=== PATIENT | male | born 1945 | race Caucasian/White ===

== ENCOUNTER 2018-07-04 12:33 | Emergency (ER) | payer MEDICARE ==
[~2018-07-04] VITALS: Ht 188 cm; Wt 113.0 kg
[2018-07-04] MEDS ORDERED: ONDANSETRON HCL 4MG/2ML INJ IV STA (12:53)
[2018-07-04] MEDS ORDERED: SODIUM CHLORIDE 0.9% 1,000 ML IV ONE (12:53)
[2018-07-04 13:13] LABS: CHLORIDE 108 mEq/L (98-107)
[2018-07-04 13:15] LABS: BASOPHILS % 0.8 % (0.0-2.0); EOSINOPHILS % 3.9 % (0.0-5.0); HEMATOCRIT. 43.6 % (42.0-52.0); HEMOGLOBIN. 14.6 g/dL (14.0-18.0); LYMPHOCYTES % 23.2 % (20.0-50.0); MEAN CORPUSCULAR HEMOGLOBIN 29.2 pg (28.0-32.0); MEAN CORPUSCULAR VOLUME 87.2 fL (80.0-94.0); MEAN PLATELET VOLUME 7.7 fl (7.4-10.4); MONOCYTES % 5.7 % (2.0-8.0); NEUTROPHILS % 66.4 % (40.0-76.0); PLATELET 235 x1000/uL (130-400); RED CELL DISTRIBUTION WIDTH 14.5 % (11.6-14.6)
[2018-07-04 14:47] VITALS: BP 122/72
== END 2018-07-04 14:48 | disposition home or self-care (01) ==
LOC: ER 12:46
DX: R10.9 Unspecified abdominal pain (principal); R11.0 Nausea; I10 Essential (primary) hypertension; Z98.890 Other specified postprocedural states
CPT/HCPCS: 36415; 80053; 83690; 85025; 93005; 96374; 99284; J2405; J7030